=== PATIENT | male | born 1990 | race Caucasian/White ===

== ENCOUNTER 2020-03-02 19:06 | Emergency (ER) | payer OTHER ==
[~2020-03-02] VITALS: Ht 180.3 cm; Wt 67.1 kg
[~2020-03-02 19:06] MED LIST: CFR250T PO; HYDR-3454 PO; PRD20T PO
[2020-03-02 19:14] VITALS: BP 136/83
[2020-03-02] MEDS ORDERED: FLUORESCEIN (FLUOR-I-STRIPS) 1 MG STRP ONE (19:24)
[2020-03-02] MEDS ORDERED: BSS 15 ML IR PRN (19:30)
[2020-03-02] MEDS ORDERED: TETRACAINE 0.5% OPHTH SOLN 4 ML BTL (SINGLE DOSE ONLY) OP ONE (19:30)
[2020-03-02] MEDS ORDERED: RX-GENTAMICIN SULFATE 0.3% OP 5 ML BTL OD STA (19:47)
--- NOTE | 2020-03-02 19:50 | ED EENT ---
History of Present Illness General Chief Complaint: Eye Problems Stated Complaint: R EYE PAIN Nursing Triage Note: PT AMBULATE TO TRIAGE WITH C/O RIGHT EYE PAIN. PT STATES THAT WHEN HE WOKE UP THIS MORNING HIS EYE FELT IRRATED AND WHEN HE GOT HOME FROM WORK THE PAIN WAS WORSE. PT STATES THAT EYE WAS HARD TO OPEN WHEN HE GOT HOME FROM WORK AND THAT EYE DROPS MAKE THE EYE BURN. 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 NO PRIOR PROBLEMS WITH HIS EYES, DOES NOT WEAR GLASSES OR CONTACTS. LAST TETANUS VACCINE UNKNOWN Allergies and Home Medications Allergies Coded Allergies: Penicillins (Verified Allergy, Intermediate, RASH/HIVES, 08/14/12) Home Medications Cefuroxime Axetil 250 Mg Tablet, 1 TAB PO BID, (Reported) Hydrocodone Bit/Acetaminophen 1 Each Tablet, 1-2 EACH PO q 4-6 hr prn, (Reported) Prednisone 20 Mg Tab, 20 MG PO as directed, (Reported) Patient Home Medication List Home Medication List Reviewed: Yes Review of Systems Review of Systems Constitutional: no symptoms reported Eyes: See HPI Past Pabricf-Tjexwr-Atmobd Hx Past Med/Social Hx: Reviewed and Corrections made Patient Social History Alcohol Use: Occasionally Uses Recreational Drug Use: No Smoking Status: Never a Smoker 2nd Hand Smoke Exposure: No Recent Foreign Travel: No Contact w/Someone Who Travel: No Recent Infectious Disease Expo: No Recent Hopitalizations: No Physical Abuse: No Sexual Abuse: No Mistreated: No Fear: No Immunizations Up To Date Tetanus Booster (TDap): More than 5yrs PED Vaccines UTD: Yes Seasonal Allergies Seasonal Allergies: Yes Past Medical History Surgeries: Yes ( shelby removed) Respiratory: No Cardiac: No Neurological: No Reproductive Disorders: No Genitourinary: No Gastrointestinal: No Musculoskeletal: No Endocrine: No HEENT: Yes Tonsilitis Loss of Vision: Denies Hearing Impairment: Denies Cancer: No Psychosocial: No Integumentary: No Blood Disorders: No Adverse Reaction/Blood Tranf: No (no transfusions) Physical Exam Vital Signs Vital Signs - First Documented 03/02/20 19:14 Temp 36.9 Pulse 90 Resp 18 B/P (MAP) 136/83 (100) O2 Delivery Room Air Height, Weight, BMI Height: '" Weight: lbs. oz. kg; 20.00 BMI Method:Stated General Appearance: WD/WN, no apparent distress Eyes: right eye conjunctival inflammation, right eye foreign body; left eye normal inspection; bilateral eye PERRL, bilateral eye EOMI Procedures/Interventions Eye : Location: right eye Eye FB Removal: removal w/ needle Anesthesia (gtts): Tetracaine Progress/Procedure Conclusion FOREIGN BODY NOTED AT 6:00 POSITION ON RIGHT CORNEA ALL VISIBLE FOREIGN MATERIAL REMOVED WITH NEEDLE. NO RUST RING PRESENT PT TOLERATED WELL Progress/Results/Core Measures Results/Orders My Orders Orders - ZAHEER JOINER DO Tetracaine 0.5% Ophth [place] Sdv (Tetracai (03/02/20 19:30) Balanced Salt Irrigation Soln (Bss Irrig (03/02/20 19:30) Fluorescein Strips ([id number]-[id number]) (03/02/20 19:24) Rx-Gentamicin Ophth Soln (Rx-Gentamicin (03/02/20 19:47) Dipht,Pertuss(Acell),Tet Adult (Boostrix (03/02/20 20:00) Medications Given in ED Current Medications Medications Dose Ordered Sig/July Route Start Time Stop Time Status Last Admin Dose Admin Balanced Salt Solution 15 ml PRN PRN IR 03/02/20 19:30 03/02/20 20:07 DC 03/02/20 19:39 15 ML Diphtheria/ Tetanus/Acell Pertussis 0.5 ml ONCE ONCE IM 03/02/20 20:00 03/02/20 20:01 DC 03/02/20 20:05 0.5 ML Fluorescein Sodium 1 mg STK-MED ONCE .ROUTE 03/02/20 19:24 03/02/20 19:29 DC 03/02/20 19:39 1 MG Tetracaine HCl 1 OR 2 DROPS INTO AFFEC... ONCE ONCE OP 03/02/20 19:30 03/02/20 19:31 DC 03/02/20 19:39 4 ML Vital Signs/I&O 03/02/20 19:14 Temp 36.9 Pulse 90 Resp 18 B/P (MAP) 136/83 (100) O2 Delivery Room Air Blood Pressure Mean: 100 Departure Impression Primary Impression: Foreign body of right cornea Additional Impression: Lrdyilszat-ktnrzfzbm-ojyjqvq (DPT) vaccination administered at current visit Disposition: HOME, SELF-CARE Condition: Stable Departure-Patient Inst. Referrals: CATHERINE BUSTOS MD (PCP/Family) Primary Care Physician Patient Instructions: How to Use Eye Drops, Foreign Body in Eye (DC) Add. Discharge Instructions: DO NOT RUB EYE USE EYE DROPS EVERY 4 HOURS TYLENOL AND MOTRIN NEEDED FOR PAIN RETURN TO ER TOMORROW TO RECHECK EYE All discharge instructions reviewed with patient and/or family. Voiced understanding. ZAHEER JOINER DO Mar 02, 2020 19:50
[2020-03-02] MEDS ORDERED: TETANUS,DIPTH,PERTUSS P/F (BOOSTRIX) 0.5 ML VIAL IM ONE (20:00)
== END 2020-03-02 20:06 | disposition home or self-care (01) ==
LOC: EDUNIT# 19:06 → ER 19:08
DX: T15.01XA Foreign body in cornea, right eye, initial encounter (principal); Z23 Encounter for immunization; Z88.0 Allergy status to penicillin; Z79.52 Long term (current) use of systemic steroids; X58.XXXA Exposure to other specified factors, initial encounter
CPT/HCPCS: 90715; 99282